=== PATIENT | female | born 1950 | race Caucasian/White ===

== ENCOUNTER 2018-03-28 15:07 | Inpatient (IN) ==
[2018-03-28] MEDS ORDERED: SODIUM CHLORIDE 0.9% 500 ML IV STA (17:12)
[2018-03-28 17:45] LABS: Basophils # 0.1 10*3/uL (0.0-0.2); Basophils % 0.9 % (0.0-0.8); Eosinophils # 0.1 10*3/uL (0.0-0.87); Eosinophils % 0.9 % (0.00-10.9); Hematocrit 41.2 VOL% (35.7-47.0); Hemoglobin 13.6 GM/DL (12.0-16.0); Immature Granulocytes % 3.2 %; Immature Granulocytes Absolute 0.18 #; Lymphocytes # 0.8 10*3/uL (1.4-4.0); Lymphocytes % 14.1 % (21.3-54.2); Mean Corpuscular Hemoglobin 30 PG (27-34); Mean Corpuscular Volume 91.8 FL (87-102); Mean Platelet Volume 11.9 FL (9.6-12.0); Monocytes # 0.2 10*3/uL (0.11-0.8); Monocytes % 3.8 % (1.7-12.7); Neutrophils # 4.3 10*3/uL (1.4-7.4); Neutrophils % 77.1 % (38.7-73.9); Platelet Count 225 T/CUMM (130-400); Red Blood Count 4.49 MC/CUMM (3.8-5.5); Red Cell Distribution Width 14.2 % (9.3-17.3); White Blood Count 5.6 T/CUMM (4-12)
[2018-03-28 18:08] LABS: Albumin 3.3 G/DL (3.4-5.0); Bilirubin,Total 1.6 MG/DL (0.2-1.0); Calcium 8.7 MG/DL (8.5-10.1); Osmolality,Calculated 278.5 MOS/KG (273-304); Potassium 4.7 MMOL/L (3.5-5.1); Total Protein 7.1 G/DL (6.4-8.3)
[2018-03-28 18:34] LABS: Apearance,Urine CLEAR (Clear); Bilirubin,Urine Negative (Negative); Blood, Urine Negative (Negative); Glucose,Urine (UA) Negative (Negative); Hyaline Casts,Urine 1 /LPF (0-3); Ketones,Urine 5 mg/dL (Negative); Mucus,Urine Occasional /LPF (Occasional); Nitrite,Urine Negative (Negative); Protein,Urine 30 MG/DL; RBC,Urine <1 /HPF (0-4); Squamous Epithelial Cell,Urine Occasional /HPF (0-10); Urine Color Amber (Yellow); Urine Specific Gravity 1.014 (1.001-1.035); WBC,Urine 4 /HPF (0-6)
[2018-03-28 19:17] LABS: Band Neutrophils 1 % (0-10); Eosinophils 1 % (0-10); Lymphocytes 19 % (20-55); Platelet Estimate Adequate; Polychromasia Slight; Segmented Neutrophils 78 % (50-85); Total Cells Counted 100
[2018-03-28 20:58] LABS: INR 1.1; PT Patient Result 11.1 SECS; Partial Thromboplastin Time 25.9 SECS (0-40)
[2018-03-28] MEDS ORDERED: GLUCAGON 1 MG VIAL IM PRN (21:03)
[2018-03-28] MEDS ORDERED: DEXTROSE 50% 25 GM/50 ML VIAL IV PRN (21:03)
[2018-03-28] MEDS: ONDANSETRON 4 MG/2 ML VIAL IV PRN (21:15)
[2018-03-28] MEDS: INSULIN REGULAR 100 UNIT/ML SUBCUT SCH (21:21)
[2018-03-28] MEDS ORDERED: SODIUM CHLORIDE 0.9% 1,000 ML IV SCH (21:30)
[2018-03-28] MEDS ORDERED: IBUPROFEN 400 MG TABLET PO PRN (21:33)
[2018-03-28] MEDS ORDERED: LORazepam 1 MG TABLET PO PRN (21:34)
[2018-03-28 22:00] LABS: Lactic Acid 6.6 MMOL/L (0.4-2.0)
[2018-03-28] MEDS ORDERED: SODIUM CHLORIDE 0.9% 1,000 ML IV ONE (22:11)
[2018-03-28] MEDS: predniSONE 20 MG TABLET PO SCH (22:38)
[2018-03-28] MEDS: DOCUSATE SODIUM 100 MG CAPSULE PO SCH (22:38)
[2018-03-29 01:00] LABS: Basophils # 0.1 10*3/uL (0.0-0.2); Basophils % 0.7 % (0.0-0.8); Eosinophils # 0.1 10*3/uL (0.0-0.87); Eosinophils % 1.3 % (0.00-10.9); Hemoglobin 13.3 GM/DL (12.0-16.0); Immature Granulocytes % 6.1 %; Immature Granulocytes Absolute 0.68 #; Lymphocytes # 1.3 10*3/uL (1.4-4.0); Lymphocytes % 11.4 % (21.3-54.2); Mean Corpuscular HGB Conc 33.3 GM/DL (32-36); Mean Corpuscular Hemoglobin 31 PG (27-34); Mean Corpuscular Volume 94.3 FL (87-102); Mean Platelet Volume 11.8 FL (9.6-12.0); Monocytes # 0.2 10*3/uL (0.11-0.8); Monocytes % 1.5 % (1.7-12.7); NRBC # 0.02 10*3/uL; Neutrophils # 8.9 10*3/uL (1.4-7.4); Platelet Count 304 T/CUMM (130-400); Red Blood Count 4.24 MC/CUMM (3.8-5.5); Red Cell Distribution Width 14.6 % (9.3-17.3); White Blood Count 11.2 T/CUMM (4-12)
[2018-03-29 01:14] LABS: Albumin 2.9 G/DL (3.4-5.0); Bilirubin,Direct 1.15 MG/DL (0.0-0.20); Bilirubin,Indirect 0.5 MG/DL (0.0-1.0); Bilirubin,Total 1.6 MG/DL (0.2-1.0); Total Protein 6.8 G/DL (6.4-8.3)
[2018-03-29] MEDS: LACTULOSE 20 GM/30 ML UDCUP PO SCH ×4 (01:17→18:18)
[2018-03-29 01:21] LABS: Calcium 8.1 MG/DL (8.5-10.1); Osmolality,Calculated 280.4 MOS/KG (273-304); Potassium 4.8 MMOL/L (3.5-5.1); Thyroid Stimulating Hormone 52.3 uIU/ml (0.358-3.74)
[2018-03-29 01:24] LABS: Band Neutrophils 2 % (0-10); Lymphocytes 44 % (20-55); Segmented Neutrophils 46 % (50-85); Total Cells Counted 100
[2018-03-29 01:25] LABS: Atypical Lymphocytes 1+; Macrocytosis 2+; Platelet Estimate Normal
[2018-03-29 02:14] LABS: ABG Base Excess -12.9 MMOL/L (-2.5-2.5); ABG HCO3 14.6 MMOL/L (20-26); ABG Oxygen Saturation 97.8 % (95-100); ABG PCO2 27.4 MM HG (35-48); ABG PH 7.277 (7.35-7.45); ABG TCO2 11.3 MMOL/L (23-27); Allen Test Positive
[2018-03-29] MEDS ORDERED: VANCOMYCIN INJ 1,500 MG in SODIUM CHLORIDE 0.9% 500 ML IV ONE (02:30)
[2018-03-29] MEDS ORDERED: VANCOMYCIN INJ 1,500 MG in SODIUM CHLORIDE 0.9% 500 ML IV SCH (02:30)
[2018-03-29] MEDS ORDERED: AZTREONAM 500 MG in SYRINGE 1 EACH IV SCH (02:30)
[2018-03-29] MEDS: PHENYLEPHRINE DRIP 40 MG/250 ML PREMIX IV PRN ×3 (02:40→20:27)
[2018-03-29] MEDS ORDERED: FUROSEMIDE 20 MG/2 ML VIAL IV ONE (03:00)
[2018-03-29] MEDS ORDERED: SODIUM BICARB INJ 50 MEQ in SODIUM CHLORIDE 0.45% 1,000 ML IV SCH (03:00)
[2018-03-29] MEDS ORDERED: SODIUM CHLORIDE 0.9% 500 ML IV ONE (03:30)
[2018-03-29] MEDS ORDERED: SODIUM CHLORIDE 0.9% 250 ML IV ONE (04:49)
[2018-03-29] MEDS: LEVOTHYROXINE 75 MCG TABLET PO SCH (06:25)
[2018-03-29] MEDS: ONDANSETRON 4 MG/2 ML VIAL IV PRN (06:40)
[2018-03-29 07:31] LABS: Basophils # 0.1 10*3/uL (0.0-0.2); Basophils % 0.8 % (0.0-0.8); Eosinophils # 0.1 10*3/uL (0.0-0.87); Eosinophils % 0.6 % (0.00-10.9); Hematocrit 40.9 VOL% (35.7-47.0); Hemoglobin 13.1 GM/DL (12.0-16.0); Immature Granulocytes % 3.9 %; Immature Granulocytes Absolute 0.63 #; Lymphocytes % 12.2 % (21.3-54.2); Mean Corpuscular Hemoglobin 31 PG (27-34); Mean Corpuscular Volume 96.5 FL (87-102); Mean Platelet Volume 11.4 FL (9.6-12.0); Monocytes # 0.2 10*3/uL (0.11-0.8); Monocytes % 1.4 % (1.7-12.7); NRBC # 0.02 10*3/uL; Neutrophils # 13.1 10*3/uL (1.4-7.4); Neutrophils % 81.1 % (38.7-73.9); Platelet Count 334 T/CUMM (130-400); Red Blood Count 4.24 MC/CUMM (3.8-5.5); Red Cell Distribution Width 14.9 % (9.3-17.3); White Blood Count 16.2 T/CUMM (4-12)
[2018-03-29 07:51] LABS: Blood Urea Nitrogen 19 MG/DL (7-18); Calcium 7.5 MG/DL (8.5-10.1); Glucose 79 MG/DL (74-106); Osmolality,Calculated 277.5 MOS/KG (273-304); Potassium 4.9 MMOL/L (3.5-5.1); Sodium 139 MMOL/L (136-145)
[2018-03-29 08:21] LABS: Band Neutrophils 5 % (0-10); Hypochromasia 1+; Lymphocytes 15 % (20-55); Macrocytosis 1+; Platelet Estimate Adequate; Segmented Neutrophils 80 % (50-85); Total Cells Counted 100
[2018-03-29 08:22] LABS: Atypical Lymphocytes S; Polychromasia Slight
[2018-03-29] MEDS: predniSONE 20 MG TABLET PO SCH (09:37)
[2018-03-29] MEDS: rOPINIRole 1 MG TABLET PO SCH (09:37)
[2018-03-29] MEDS: PANTOPRAZOLE 40 MG TABLET PO SCH (09:37)
[2018-03-29] MEDS: INSULIN REGULAR 100 UNIT/ML SUBCUT SCH ×4 (09:37→21:52)
[2018-03-29] MEDS: GABAPENTIN 300 MG CAPSULE PO SCH ×2 (09:37→20:54)
[2018-03-29] MEDS: SODIUM BICARB INJ 100 MEQ in DEXTROSE 5% 900 ML IV SCH ×2 (11:11→18:18)
[2018-03-29] MEDS: DOCUSATE SODIUM 100 MG CAPSULE PO SCH ×2 (11:11→20:54)
[2018-03-29] MEDS ORDERED: MORPHINE 4 MG/1 ML VIAL IV PRN (11:28)
[2018-03-29 11:59] LABS: Lactic Acid 11.1 MMOL/L (0.4-2.0)
[2018-03-29] MEDS: CARBOXYMETHYLCELLULOSE 1% OPH SOLN BOTH EYES SCH (12:21)
[2018-03-29] MEDS ORDERED: AZTREONAM 250 MG in SYRINGE 1 EACH IV SCH (14:00)
[2018-03-29 20:17] LABS: ABG Base Excess -18.9 MMOL/L (-2.5-2.5); ABG HCO3 10.8 MMOL/L (20-26); ABG Oxygen Saturation 96.7 % (95-100); ABG PCO2 24.6 MM HG (35-48); ABG TCO2 8.1 MMOL/L (23-27)
[2018-03-29 20:19] LABS: ABG PH 7.164 (7.35-7.45)
[2018-03-29] MEDS ORDERED: SODIUM BICARBONATE 50 MEQ/50 ML SYRINGE IV ONE ×2 (20:44)
[2018-03-29] MEDS: ASPIRIN EC 81 MG TABLET PO SCH (20:54)
[2018-03-29] MEDS ORDERED: SUCCINYLCHOLINE 200 MG/10 ML VIAL ONE (21:08)
[2018-03-29] MEDS ORDERED: ETOMIDATE 20 MG/10 ML VIAL IV ONE (21:08)
[2018-03-29] MEDS ORDERED: PROPOFOL 1,000 MG/100 ML BOTTLE IV ONE ×2 (21:24→21:29)
[2018-03-29] MEDS: PROPOFOL 1,000 MG/100 ML BOTTLE IV SCH (21:25)
[2018-03-29 21:26] LABS: Calcium 6.8 MG/DL (8.5-10.1); Osmolality,Calculated 291.4 MOS/KG (273-304); Potassium 4.4 MMOL/L (3.5-5.1)
[2018-03-29] MEDS ORDERED: SODIUM CHLORIDE 0.9% 1,000 ML IV ONE ×2 (21:28→23:59)
[2018-03-29 21:52] LABS: ABG Base Excess -15.7 MMOL/L (-2.5-2.5); ABG HCO3 11.3 MMOL/L (20-26); ABG Oxygen Saturation 99.2 % (95-100); ABG PCO2 30.7 MM HG (35-48); ABG PO2 413.2 MM HG (80-95); ABG TCO2 12.2 MMOL/L (23-27)
[2018-03-29] MEDS ORDERED: SODIUM BICARB INJ 150 MEQ in DEXTROSE 5% 850 ML IV SCH (22:00)
[2018-03-29 22:09] LABS: ABG PH 7.184 (7.35-7.45)
[2018-03-29] MEDS ORDERED: NOREPINEPHRINE 8 MG in SODIUM CHLORIDE 0.9% 242 ML IV PRN (22:22)
[2018-03-29] MEDS ORDERED: NOREPINEPHRINE 4 MG/4 ML VIAL IV ONE (22:24)
[2018-03-29] MEDS: SODIUM BICARB INJ 150 MEQ in DEXTROSE 5% 850 ML IV SCH (23:45)
[2018-03-30 00:14] LABS: ABG Base Excess -18.8 MMOL/L (-2.5-2.5); ABG HCO3 8.4 MMOL/L (20-26); ABG Oxygen Saturation 98.3 % (95-100); ABG PCO2 24.6 MM HG (35-48); ABG PO2 158.8 MM HG (80-95); ABG TCO2 9.1 MMOL/L (23-27)
[2018-03-30] MEDS ORDERED: SODIUM BICARBONATE 50 MEQ/50 ML SYRINGE IV ONE ×2 (00:23→03:09)
[2018-03-30] MEDS ORDERED: MEROPENEM 500 MG in SODIUM CHLORIDE 0.9% 100 ML IV SCH ×2 (00:30)
[2018-03-30] MEDS: PROPOFOL 1,000 MG/100 ML BOTTLE IV SCH ×5 (01:50→21:59)
[2018-03-30] MEDS: LACTULOSE 20 GM/30 ML UDCUP PO SCH ×4 (02:04→18:15)
[2018-03-30] MEDS: PHENYLEPHRINE DRIP 40 MG/250 ML PREMIX IV PRN ×2 (02:09→03:25)
[2018-03-30] MEDS ORDERED: ALBUMIN 25% 25 GM in PREMIX 1 EACH IV ONE (02:33)
[2018-03-30 02:57] LABS: ABG Base Excess -18.4 MMOL/L (-2.5-2.5); ABG HCO3 10.9 MMOL/L (20-26); ABG Oxygen Saturation 90.2 % (95-100); ABG PCO2 30.6 MM HG (35-48); ABG PO2 71.2 MM HG (80-95); ABG TCO2 9.5 MMOL/L (23-27)
[2018-03-30 03:00] LABS: ABG PH 7.128 (7.35-7.45)
[2018-03-30 03:12] LABS: Free T4 (Free Thyroxine) 0.66 NG/DL (0.76-1.46); Thyroid Stimulating Hormone 32.6 uIU/ml (0.358-3.74)
[2018-03-30 03:14] LABS: Troponin I 0.524 NG/ML (0.00-0.045)
[2018-03-30] MEDS: SODIUM BICARB INJ 150 MEQ in DEXTROSE 5% 850 ML IV SCH ×3 (03:25→12:54)
[2018-03-30] MEDS: methylPREDNISolone SOD SUC 40 MG/1 ML VIAL IV SCH ×2 (04:00→15:27)
[2018-03-30 04:44] LABS: Basophils # 0.1 10*3/uL (0.0-0.2); Basophils % 0.8 % (0.0-0.8); Eosinophils # 0.1 10*3/uL (0.0-0.87); Eosinophils % 0.8 % (0.00-10.9); Hematocrit 34.1 VOL% (35.7-47.0); Hemoglobin 10.8 GM/DL (12.0-16.0); Immature Granulocytes % 1.9 %; Immature Granulocytes Absolute 0.25 #; Lymphocytes % 14.9 % (21.3-54.2); Mean Corpuscular HGB Conc 31.7 GM/DL (32-36); Mean Corpuscular Hemoglobin 32 PG (27-34); Mean Corpuscular Volume 100.3 FL (87-102); Mean Platelet Volume 11.2 FL (9.6-12.0); Monocytes # 0.1 10*3/uL (0.11-0.8); Monocytes % 1.1 % (1.7-12.7); NRBC # 0.09 10*3/uL; Neutrophils # 10.8 10*3/uL (1.4-7.4); Neutrophils % 80.5 % (38.7-73.9); Platelet Count 215 T/CUMM (130-400); Red Cell Distribution Width 15.6 % (9.3-17.3); White Blood Count 13.3 T/CUMM (4-12)
[2018-03-30 04:52] LABS: INR 1.6; PT Patient Result 16.9 SECS
[2018-03-30 04:58] LABS: Partial Thromboplastin Time 40.1 SECS (0-40)
[2018-03-30 05:18] LABS: ABG Base Excess -15.5 MMOL/L (-2.5-2.5); ABG HCO3 12.7 MMOL/L (20-26); ABG Oxygen Saturation 99.1 % (95-100); ABG TCO2 10.7 MMOL/L (23-27); Allen Test Positive; Pt O2 Delivery Device Ventilator
[2018-03-30 05:19] LABS: Band Neutrophils 2 % (0-10); Lymphocytes 14 % (20-55); Myelocytes 1 %; Platelet Estimate Adequate; Segmented Neutrophils 82 % (50-85); Total Cells Counted 100
[2018-03-30 05:20] LABS: Hypochromasia 1+; Macrocytosis Slight
[2018-03-30] MEDS: NOREPINEPHRINE 16 MG in SODIUM CHLORIDE 0.9% 234 ML IV PRN ×3 (05:22→18:34)
[2018-03-30] MEDS: PHENYLEPHRINE INJ 160 MG in SODIUM CHLORIDE 0.9% 234 ML IV PRN ×3 (05:22→19:45)
[2018-03-30 05:24] LABS: ABG PH 7.206 (7.35-7.45)
[2018-03-30 05:29] LABS: Albumin 2.7 G/DL (3.4-5.0); Bilirubin,Direct 1.7 MG/DL (0.0-0.20); Bilirubin,Total 2.7 MG/DL (0.2-1.0); Total Protein 6.1 G/DL (6.4-8.3)
[2018-03-30] MEDS: LEVOTHYROXINE 75 MCG TABLET PO SCH (06:13)
[2018-03-30 06:22] LABS: Lactic Acid 18.6 MMOL/L (0.4-2.0)
[2018-03-30 07:03] LABS: Osmolality,Calculated 291.4 MOS/KG (273-304); Potassium 3.8 MMOL/L (3.5-5.1)
[2018-03-30 07:05] LABS: Calcium 5.5 MG/DL (8.5-10.1)
[2018-03-30] MEDS ORDERED: CALCIUM GLUCONATE 1,000 MG in SODIUM CHLORIDE 0.9% 100 ML IV ONE (08:29)
[2018-03-30] MEDS ORDERED: LEVOTHYROXINE 100 MCG VIAL IV SCH (08:46)
[2018-03-30] MEDS: INSULIN REGULAR 100 UNIT/ML SUBCUT SCH ×3 (09:00→18:15)
[2018-03-30 09:13] LABS: CKMB % 1.2 %; Lactic Acid 21.3 MMOL/L (0.4-2.0)
[2018-03-30 09:18] LABS: Troponin I 1.58 NG/ML (0.00-0.045)
[2018-03-30] MEDS: rOPINIRole 1 MG TABLET PO SCH (09:47)
[2018-03-30] MEDS: GABAPENTIN 300 MG CAPSULE PO SCH (09:47)
[2018-03-30] MEDS: CARBOXYMETHYLCELLULOSE 1% OPH SOLN BOTH EYES SCH (09:47)
[2018-03-30] MEDS: PANTOPRAZOLE 40 MG TABLET PO SCH (09:47)
[2018-03-30] MEDS: DOCUSATE SODIUM 100 MG CAPSULE PO SCH ×2 (09:47→21:02)
[2018-03-30] MEDS ORDERED: ENOXAPARIN 30 MG/0.3 ML SYRINGE SUBCUT SCH (10:00)
[2018-03-30] MEDS: DOPamine 800 MG/250 ML PREMIX IV PRN ×2 (11:52→20:53)
[2018-03-30 12:11] LABS: Hepatitis A Ab IgM Quant 0.51 Index; Hepatitis A Ab IgM Result Negative (Negative); Hepatitis B Core IgM Quant < 0.05 Index; Hepatitis B Core IgM Result Negative (Negative); Hepatitis B Surface Ag Quant < 0.10 Index; Hepatitis B Surface Ag Result Negative (Negative); Hepatitis C Virus Ab Quant 0.08 Index; Hepatitis C Virus Ab Result Negative (Negative)
[2018-03-30] MEDS: ZINC OXIDE PASTE 113 GM TUBE TOP SCH ×2 (15:06→21:02)
[2018-03-30 20:19] LABS: ABG Base Excess -18.5 MMOL/L (-2.5-2.5); ABG HCO3 10.8 MMOL/L (20-26); ABG Oxygen Saturation 98.6 % (95-100); ABG PCO2 21.2 MM HG (35-48); ABG TCO2 7.8 MMOL/L (23-27)
[2018-03-30 20:21] LABS: ABG PH 7.203 (7.35-7.45)
[2018-03-30] MEDS ORDERED: GABAPENTIN 50 MG/ML 30 ML/BOTTLE PER TUBE SCH (21:00)
[2018-03-30] MEDS: ASPIRIN EC 81 MG TABLET PO SCH (21:10)
[2018-03-30] MEDS ORDERED: MORPHINE 4 MG/1 ML VIAL IV PRN (21:39)
[2018-03-30 22:13] VITALS: BP 41/23
[2018-03-31] MEDS ORDERED: PANTOPRAZOLE 40 MG VIAL IV SCH (09:00)
== END 2018-03-30 22:15 | disposition expired | DRG 441 ==
LOC: EDUNIT# → EDBD → N.ED 15:07 → N.EDINP 21:03 → SUATTDRO 21:03 → N.2E 21:50 → N.CC 03-29 02:00
PROVIDERS: ADMIT Internal Medicine; ATTEND Internal Medicine